=== PATIENT | female | born 1990 | race African-American/Black ===

== ENCOUNTER 2016-10-27 00:23 | Emergency (ER) | payer SELFPAY ==
[~2016-10-27] VITALS: Ht 152.4 cm; Wt 43.9 kg
[~2016-10-27 00:23] MED LIST: METH750T2 PO; ZOFR4TAB3 SL
[2016-10-27 00:29] VITALS: BP 101/59; PULSE 99; RESP 14; TEMP 98.6; O2SAT 99
--- NOTE | 2016-10-27 02:31 | PD ---
HPI Chief Complaint: Skin Problem Time Seen by Provider: 02:27 Travel History International Travel<30 days: No Contact w/Intl Traveler<30days: No Traveled to known affect area: No History of Present Illness HPI The patient is a 26-year-old female that lives without air conditioning and she has had around her neck and antecubital fossa skin irritation. It itches slightly. She denies any fever. PFS Past Medical History Medical History: Denies Significant Hx Diminished Hearing: No Tetanus Vaccination: Unknown Influenza Vaccination: No ?: Not LMP: 10/27/2016 Past Surgical History Surgical History: No Previous Surgery Social History Alcohol Use: No Tobacco Use: No Substance Use: No Allergies-Medications (Allergen,Severity, Reaction): Coded Allergies: No Known Allergies (Unverified , 10/27/16) Reported Meds & Prescriptions Reported Meds & Active Scripts Active No Active Prescriptions or Reported Medications Review of Systems Except as stated in HPI: all other systems reviewed are Neg Physical Exam Narrative GENERAL: The patient was sleeping when I encountered her. She is in minimal distress with her skin rash. Her vital signs are normal. SKIN: Focused skin assessment warm/dry. The skin shows tiny papules which appear to be at the sweat ducks they're slightly raised, the skin is not erythematous. HEAD: Atraumatic. Normocephalic. EYES: Pupils equal and round. No scleral icterus. No injection or drainage. ENT: No nasal bleeding or discharge. Mucous membranes pink and moist. NECK: Trachea midline. No JVD. CARDIOVASCULAR: Regular rate and rhythm. No murmur appreciated. RESPIRATORY: No accessory muscle use. Clear to auscultation. Breath sounds equal bilaterally. GASTROINTESTINAL: Abdomen soft, non-tender, nondistended. Hepatic and splenic margins not palpable. MUSCULOSKELETAL: No obvious deformities. No clubbing. No cyanosis. No edema. NEUROLOGICAL: Awake and alert. No obvious cranial nerve deficits. Motor grossly within normal limits. Normal speech. PSYCHIATRIC: Appropriate mood and affect; insight and judgment normal. Data Data Last Documented VS Vital Signs Date Time Temp Pulse Resp B/P Pulse Ox O2 Delivery O2 Flow Rate FiO2 10/27/16 00:29 98.6 99 14 101/59 99 MDM Medical Decision Making Medical Screen Exam Complete: Yes Emergency Medical Condition: Yes Medical Record Reviewed: Yes Differential Diagnosis Miliaria,, scabiesunlikely, allergic reaction, cellulitisunlikely Narrative Course The patient has miliaria. She needs to use cool washes and keep cool in the daytime at home. If she does not have her conditioning, she should use a fan. Diagnosis Primary Impression: Miliaria crystallina Additional Instructions: As we discussed, use fans and try to keep his cool as possible at home. Wash with cool water gently these lesions and do not allow irritation of your collar to make these worse. Med/Other Pt SpecificInfo: No Change to Meds Scripts No Active Prescriptions or Reported Meds Disposition: 01 DISCHARGE HOME Condition: Stable Vijay Seo MD Oct 27, 2016 02:30
== END 2016-10-27 02:45 | disposition home or self-care (01) ==
LOC: PHED 00:23
DX: L74.1 Miliaria crystallina (principal)
CPT/HCPCS: 99282